=== PATIENT | male | born 1945 ===

== ENCOUNTER 2022-08-15 10:30 | Inpatient (IN) | payer MEDICARE, BC ==
[2022-08-16] MEDS ORDERED: Heparin 5,000 UNITS/ML VIAL ONE (07:05)
[2022-08-16] MEDS ORDERED: Protamine Sulfate 50 MG/5 ML VIAL ONE (07:05)
[2022-08-16] MEDS ORDERED: Lidocaine 1% MPF 2 ML VIAL ONE (07:17)
[2022-08-16] MEDS ORDERED: Fentanyl 250 MCG/5 ML VIAL ONE (07:29)
[2022-08-16] MEDS ORDERED: Bupivacaine/Epinephrine 0.25% 30 ML VIAL ONE (07:30)
[2022-08-16] MEDS ORDERED: CEFAZOLIN 2 GM VIAL ONE ×2 (07:46→15:19)
[2022-08-16] MEDS ORDERED: Sodium Chloride 0.9% 100 ML ONE ×2 (07:46→15:20)
[2022-08-16] MEDS ORDERED: PROPOFOL 200 MG/20 ML VIAL ONE (08:17)
[2022-08-16] MEDS ORDERED: PHENYLEPHRINE-NS 100 MCG/ML 10 ML SYRINGE ONE (08:17)
[2022-08-16] MEDS ORDERED: Lidocaine 1% PF 5 ML VIAL ONE (08:17)
[2022-08-16] MEDS ORDERED: NEOSTIGMINE 3 MG/3 ML SYR 3 MG/3 ML SYRINGE ONE (08:17)
[2022-08-16] MEDS ORDERED: Dexamethasone 20 MG/5 ML VIAL ONE (08:17)
[2022-08-16] MEDS ORDERED: Glycopyrrolate 0.2 MG/ML 5 ML SYRINGE ONE (08:17)
[2022-08-16] MEDS ORDERED: ePHEDrine Sulfate 50 MG/10 ML VIAL ONE (08:17)
[2022-08-16] MEDS ORDERED: Ondansetron PF 4 MG/2 ML Vial ONE (08:17)
[2022-08-16] MEDS ORDERED: Ondansetron PF 4 MG/2 ML Vial IVP PRN (09:32)
[2022-08-16] MEDS ORDERED: traMADol HCl 50 MG TAB PO PRN (09:32)
[2022-08-16] MEDS ORDERED: Insulin Regular 300 UNITS/3 ML VIAL SC PRN (09:32)
[2022-08-16] MEDS ORDERED: Dextrose 5% in Water 1,000 ML IV PRN (09:32)
[2022-08-16] MEDS ORDERED: NOREPINEPHRINE 8 MG/250 ML-D5W 250 ML IVPB PRN (09:32)
[2022-08-16] MEDS ORDERED: Fentanyl 100 MCG/2 ML VIAL SLOW IVP PRN (09:32)
[2022-08-16] MEDS ORDERED: Ipratropium/Albuterol 3 ML NEB NEB PRN (09:32)
[2022-08-16] MEDS ORDERED: niCARdipine 25 MG in Sodium Chloride 0.9% 250 ML 250 ML IVPB PRN (09:32)
[2022-08-16] MEDS ORDERED: Acetaminophen 325 MG TAB PO PRN (09:32)
[2022-08-16] MEDS ORDERED: Dextrose 50% Abboject 50 ML SYRINGE SLOW IVP PRN (09:32)
[2022-08-16] MEDS ORDERED: fentaNYL 50 mcg/mL 1 mL Vial SLOW IVP PRN (09:53)
[2022-08-16] MEDS: CEFAZOLIN 2 GM in Sodium Chloride 0.9% 100 ML IVPB SCH ×2 (15:28→21:42)
[2022-08-16] MEDS: Sodium Chloride 0.9% 1,000 ML IV SCH ×2 (17:15)
[2022-08-16 18:06] VITALS: BMI 28.3
[2022-08-16] MEDS: metFORMIN 500 MG TAB PO SCH (18:12)
[2022-08-16] MEDS ORDERED: Amitriptyline HCl 100 MG TAB PO SCH (21:00)
[2022-08-16] MEDS ORDERED: Atorvastatin Calcium 20 MG TAB PO SCH (21:00)
[2022-08-16] MEDS ORDERED: Simvastatin 40 MG TAB PO SCH (21:00)
[2022-08-17] MEDS: Sodium Chloride 0.9% 1,000 ML IV SCH (05:42)
[2022-08-17] MEDS: CEFAZOLIN 2 GM in Sodium Chloride 0.9% 100 ML IVPB SCH (05:43)
[2022-08-17 08:17] VITALS: TEMP 98.2
[2022-08-17] MEDS: metFORMIN 500 MG TAB PO SCH (08:35)
[2022-08-17] MEDS ORDERED: Aspirin Chewable 81 MG TAB PO SCH (09:00)
[2022-08-17] MEDS ORDERED: Losartan 25 MG TAB PO SCH (09:00)
== END 2022-08-17 10:56 | disposition home or self-care (01) | DRG 39 ==
LOC: SURG A 08-16 06:42 → CCU 08-16 16:38
PROVIDERS: ADMIT Thoracic Surgery (Cardiothoracic Vascular Surgery); ATTEND Thoracic Surgery (Cardiothoracic Vascular Surgery)
PROC: 03CK0ZZ Extirpation of Matter from Right Internal Carotid Artery, Open Approach (ICD-10-PCS; principal; 2022-08-16)
PROC: 03UK0KZ Supplement Right Internal Carotid Artery with Nonautologous Tissue Substitute, Open Approach (ICD-10-PCS; 2022-08-16)
DX: I65.23 Occlusion and stenosis of bilateral carotid arteries (principal); I10 Essential (primary) hypertension; E11.9 Type 2 diabetes mellitus without complications; E78.2 Mixed hyperlipidemia
CPT/HCPCS: 36416; 80048; 85027; 93005; C1768; J1100; J1642; J1644; J2405; J2704; J2720; J3010; J3490; J7050